=== PATIENT | female | born 1995 | race Caucasian/White ===

== ENCOUNTER 2016-04-06 00:02 | Emergency (ER) | payer OTHER ==
[~2016-04-06] VITALS: Ht 160 cm; Wt 53.8 kg
[~2016-04-06 00:02] MED LIST: ALLERGY RELIEF10 M1 PO; BENTYL20 MG PO; BIRTH CONTROL PILL PO; COLACE100 MG PO; HYDROCODON-ACE1 EAC7 PO; MACROBID100 MG PO; MARLISSA1 EACH PO; MOBIC15 MG PO; NOHOMEMEDS; PENICILLIN V P500 MG PO; PERCOCET 5/31 TABLET PO; PYRIDIUM100 MG PO; TYLENOL WITH C1 EACH PO; ZOFRAN ODT4 MG PO; ZOFRAN4 MG PO
[2016-04-06 00:26] LABS: HEMATOCRIT 38.4 % (36.0-46.0); MCH 28.1 PG (29.0-34.0); MCHC 33.3 G/DL (30.0-36.0); MCV 84.2 FL (83-99); MEAN PLAT.VOLUME 8.7 uM^3 (9.5-12.4); PLATELET COUNT 247 K/uL (156-360); RBC DIS.WIDTH-CV 12.7 % (11.8-14.6); RBC DIS.WIDTH-SD 38.3 % (39-53); RED BLOOD COUNT 4.56 M/uL (3.80-5.20); WHITE BLOOD COUNT 8.3 K/uL (4.1-10.2)
[2016-04-06 00:40] LABS: CHLORIDE 105 mEq/L (99-109); POTASSIUM 3.9 mEq/L (3.7-5.4); SODIUM 140 mEq/L (136-147)
[2016-04-06 00:42] LABS: GLUCOSE 94 mg/dL (70-99)
[2016-04-06 00:43] LABS: ANION GAP 11 MEQ/L (2-14)
[2016-04-06 00:44] LABS: TOTAL BILIRUBIN 0.4 mg/dL (0.0-1.0)
[2016-04-06 00:45] LABS: ALKALINE PHOSPHATASE 75 IU/L (3-129)
[2016-04-06 00:46] LABS: GFR ESTIMATE (CALCULATED) > 59 mL/min/
[2016-04-06 00:47] LABS: UREA NITROGEN (BUN) 13 mg/dL (9-23)
[2016-04-06 00:49] LABS: LIPASE 52 U/L (1.0-51.0)
[2016-04-06 00:55] LABS: QUANTITATIVE HCG < 4.0 MIU/ML
[2016-04-06 02:44] LABS: ADD MIUA? NO; BILIRUBIN NEGATIVE; BLOOD NEGATIVE; COLOR YELLOW ((YELLOW)); GLUCOSE (STRIP) NEGATIVE; KETONES NEGATIVE; LEUKOCYTES NEGATIVE; NITRITE NEGATIVE; PH, URINE 6.5 (5-8); PROTEIN (STRIP) NEGATIVE; SPECIFIC GRAVITY 1.026 (1.000-1.030); UCUL ADDED? NO
[2016-04-06 04:35] VITALS: BP 111/65
[2016-04-15] MEDS ORDERED: BENTYL20 MG PO (13:14)
[2016-04-15] MEDS ORDERED: KEFLEX500 MG PO (13:14)
[2016-04-15] MEDS ORDERED: ZOFRAN4 MG PO (13:15)
[2016-04-15] MEDS ORDERED: STOMACH PILL PO (13:17)
[2016-04-16] MEDS ORDERED: OMEPRAZOLE20 MG PO (15:13)
[2016-04-16] MEDS ORDERED: ELAVIL50 MG PO (15:14)
[2016-04-16] MEDS ORDERED: SUCRALFATE1 GM PO (15:15)
== END 2016-04-06 04:41 | disposition home or self-care (01) ==
LOC: EME 00:02
DX: R10.9 Unspecified abdominal pain (principal); G89.29 Other chronic pain; R11.0 Nausea; Z87.442 Personal history of urinary calculi
CPT/HCPCS: 74000; 80053; 81003; 83690; 84702; 85027; 99281; 99284; J1170; J1885; J2270; J2405; J7030

== ENCOUNTER 2016-04-09 12:56 | Emergency (ER) | payer OTHER ==
[~2016-04-09] VITALS: Ht 160 cm; Wt 52.2 kg
[2016-04-09 16:00] LABS: CHLORIDE 105 mEq/L (99-109); POTASSIUM 3.8 mEq/L (3.7-5.4); SODIUM 137 mEq/L (136-147)
[2016-04-09 16:03] LABS: GLUCOSE 93 mg/dL (70-99)
[2016-04-09 16:04] LABS: ANION GAP 9 MEQ/L (2-14)
[2016-04-09 16:06] LABS: ALKALINE PHOSPHATASE 57 IU/L (3-129); GFR ESTIMATE (CALCULATED) > 59 mL/min/
[2016-04-09 16:07] LABS: UREA NITROGEN (BUN) 12 mg/dL (9-23)
[2016-04-09 16:10] LABS: LIPASE 45 U/L (1.0-51.0)
[2016-04-09 16:37] LABS: TOTAL BILIRUBIN 0.3 mg/dL (0.0-1.0)
[2016-04-09 16:41] LABS: EOSINOPHIL (%) 4.3 % (0-5); EOSINOPHIL COUNT 0.3 K/uL (0-0.3); HEMATOCRIT 38.7 % (36.0-46.0); IMMATURE GRANULOCYTE (%) 0.1 % (0.0-0.7); IMMATURE GRANULOCYTE COUNT 0.1 K/uL; LYMPHOCYTE COUNT 1.8 K/uL (1.0-2.8); MCH 28.5 PG (29.0-34.0); MCHC 33.9 G/DL (30.0-36.0); MCV 84.3 FL (83-99); MEAN PLAT.VOLUME 9.1 uM^3 (9.5-12.4); MONOCYTE (%) 7.4 % (3-12); MONOCYTE COUNT 0.6 K/uL (0-0.8); NEUTROPHIL (%) 63.5 % (45-76); NEUTROPHIL COUNT 4.7 K/uL (1.8-6.4); PLATELET COUNT 240 K/uL (156-360); RBC DIS.WIDTH-CV 12.7 % (11.8-14.6); RBC DIS.WIDTH-SD 38.4 % (39-53); RED BLOOD COUNT 4.59 M/uL (3.80-5.20); WHITE BLOOD COUNT 7.5 K/uL (4.1-10.2)
[2016-04-09 16:55] LABS: QUANTITATIVE HCG < 4.0 MIU/ML
[2016-04-09 17:15] LABS: ADD MIUA? YES; BILIRUBIN NEGATIVE; BLOOD NEGATIVE; COLOR YELLOW ((YELLOW)); GLUCOSE (STRIP) NEGATIVE; KETONES NEGATIVE; LEUKOCYTES SMALL; NITRITE NEGATIVE; PROTEIN (STRIP) TRACE; SPECIFIC GRAVITY 1.022 (1.000-1.030); UROBILINOGEN 0.2 MG/DL (0.2-1.0)
[2016-04-09 17:51] LABS: BACTERIA 3+; CASTS NONE SEEN /LPF; CRYSTALS NONE SEEN; EPITHELIAL CELLS RARE; MUCUS NONE SEEN; PATHOLOGICAL CAST NONE SEEN; RED BLOOD CELLS 0-5 /HPF (0-5); SMALL ROUND CELL NONE SEEN; YEAST-LIKE CELL NONE SEEN
[2016-04-09] MEDS ORDERED: ZOFRAN ODT4 MG PO (19:40)
[2016-04-09] MEDS ORDERED: CARAFATE1 GM PO (19:40)
[2016-04-09] MEDS ORDERED: KEFLEX500 MG PO (19:40)
[2016-04-09 20:39] VITALS: BP 101/62
[2016-04-15] MEDS ORDERED: BENTYL20 MG PO (13:14)
[2016-04-15] MEDS ORDERED: KEFLEX500 MG PO (13:14)
[2016-04-15] MEDS ORDERED: ZOFRAN4 MG PO (13:15)
[2016-04-15] MEDS ORDERED: STOMACH PILL PO (13:17)
[2016-04-16] MEDS ORDERED: OMEPRAZOLE20 MG PO (15:13)
[2016-04-16] MEDS ORDERED: ELAVIL50 MG PO (15:14)
[2016-04-16] MEDS ORDERED: SUCRALFATE1 GM PO (15:15)
== END 2016-04-09 20:45 | disposition home or self-care (01) ==
LOC: EME 12:56
PROVIDERS: Physician Assistant
DX: N39.0 Urinary tract infection, site not specified (principal); R10.2 Pelvic and perineal pain; G89.29 Other chronic pain; R63.0 Anorexia; R11.2 Nausea with vomiting, unspecified; Z87.442 Personal history of urinary calculi; Z88.6 Allergy status to analgesic agent
CPT/HCPCS: 80053; 81003; 83690; 84702; 85025; 87086; 99281; 99285; J0500; J0696; J1170; J1885; J2060; J2405; J7030; J7050

== ENCOUNTER → 2016-04-16 | Outpatient (CLI) | payer OTHER ==
[~2016-04-16] VITALS: Ht 160 cm; Wt 47.6 kg
[~2016-04-16] MED LIST changes: +CARAFATE1 GM PO; +ELAVIL50 MG PO; +KEFLEX500 MG PO; +OMEPRAZOLE20 MG PO; +STOMACH PILL PO; +SUCRALFATE1 GM PO
== END | disposition home or self-care (01) ==
LOC: AMB 14:00
PROC: 0DBE8ZX Excision of Large Intestine, Via Natural or Artificial Opening Endoscopic, Diagnostic (ICD-10-PCS; principal; 2016-04-16)
DX: R10.9 Unspecified abdominal pain (principal); R19.7 Diarrhea, unspecified; R11.0 Nausea
CPT/HCPCS: 88305; 93005; J1100; J1885; J2250; J2405; J3010

== ENCOUNTER 2016-04-17 03:19 | Emergency (ER) | payer OTHER ==
[~2016-04-17] VITALS: Ht 160 cm; Wt 51.8 kg
[2016-04-17 03:54] LABS: HEMATOCRIT 40.5 % (36.0-46.0); MCH 28.2 PG (29.0-34.0); MCHC 33.6 G/DL (30.0-36.0); MCV 83.9 FL (83-99); MEAN PLAT.VOLUME 8.8 uM^3 (9.5-12.4); PLATELET COUNT 297 K/uL (156-360); RBC DIS.WIDTH-CV 12.9 % (11.8-14.6); RBC DIS.WIDTH-SD 38.5 % (39-53); RED BLOOD COUNT 4.83 M/uL (3.80-5.20)
[2016-04-17 03:55] LABS: WHITE BLOOD COUNT 10.2 K/uL (4.1-10.2)
[2016-04-17 04:02] LABS: CHLORIDE 107 mEq/L (99-109); SODIUM 138 mEq/L (136-147)
[2016-04-17 04:04] LABS: GLUCOSE 165 mg/dL (70-99)
[2016-04-17 04:06] LABS: ANION GAP 11 MEQ/L (2-14); TOTAL BILIRUBIN 0.4 mg/dL (0.0-1.0)
[2016-04-17 04:07] LABS: PROTHROMBIN TIME 10.6 (9.2-11.2)
[2016-04-17 04:08] LABS: ALKALINE PHOSPHATASE 58 IU/L (3-129); GFR ESTIMATE (CALCULATED) > 59 mL/min/
[2016-04-17 04:09] LABS: UREA NITROGEN (BUN) 10 mg/dL (9-23)
[2016-04-17 04:10] LABS: DIRECT BILIRUBIN 0.2 mg/dL (0.0-0.3)
[2016-04-17 04:12] LABS: LIPASE 30 U/L (1.0-51.0)
[2016-04-17 04:18] LABS: QUANTITATIVE HCG < 4.0 MIU/ML
[2016-04-17 06:02] VITALS: BP 93/51
== END 2016-04-17 06:09 | disposition home or self-care (01) ==
LOC: EME 03:19
PROVIDERS: Emergency Medicine
DX: K62.5 Hemorrhage of anus and rectum (principal); Z98.890 Other specified postprocedural states; J45.909 Unspecified asthma, uncomplicated; Z87.442 Personal history of urinary calculi
CPT/HCPCS: 74177; 80048; 80076; 83690; 84702; 85027; 85610; 86850; 86900; 86901; 99281; 99284; J1200; J7030

== ENCOUNTER 2016-05-12 17:49 | Emergency (ER) | payer OTHER ==
[~2016-05-12] VITALS: Ht 160 cm; Wt 52.0 kg
[2016-05-12 18:47] LABS: HEMATOCRIT 38.5 % (36.0-46.0); MCH 28.7 PG (29.0-34.0); MCHC 34.3 G/DL (30.0-36.0); MCV 83.7 FL (83-99); MEAN PLAT.VOLUME 8.9 uM^3 (9.5-12.4); PLATELET COUNT 238 K/uL (156-360); RBC DIS.WIDTH-CV 12.9 % (11.8-14.6); RBC DIS.WIDTH-SD 38.8 % (39-53); WHITE BLOOD COUNT 6.8 K/uL (4.1-10.2)
[2016-05-12 19:01] LABS: CHLORIDE 107 mEq/L (99-109); SODIUM 137 mEq/L (136-147)
[2016-05-12 19:03] LABS: GLUCOSE 99 mg/dL (70-99)
[2016-05-12 19:05] LABS: ANION GAP 7 MEQ/L (2-14)
[2016-05-12 19:07] LABS: GFR ESTIMATE (CALCULATED) > 59 mL/min/; TROP-I INTERPRETATION NEGATIVE; TROPONIN-I < 0.01 ng/mL (0.0-0.30)
[2016-05-12 19:08] LABS: UREA NITROGEN (BUN) 9 mg/dL (9-23)
[2016-05-12 21:04] VITALS: BP 118/78
[2016-05-12 21:13] LABS: D-DIMER ELISA 0.17 mg/L FEU (< 0.57)
[2016-05-12 21:16] LABS: TROP-I INTERPRETATION NEGATIVE; TROPONIN-I < 0.01 ng/mL (0.0-0.30)
== END 2016-05-12 22:09 | disposition left against medical advice (07) ==
LOC: EME 17:49 → RME 17:49
PROVIDERS: Physician Assistant
DX: R07.89 Other chest pain (principal); I49.8 Other specified cardiac arrhythmias; Z87.442 Personal history of urinary calculi
CPT/HCPCS: 71020; 80048; 84484; 85027; 85379; 93005; 99281; 99284

== ENCOUNTER 2017-03-26 14:17 | Emergency (ER) | payer OTHER ==
[~2017-03-26] VITALS: Ht 162.6 cm; Wt 55.9 kg
[2017-03-26] MEDS ORDERED: FLEXERIL10 MG PO (16:39)
[2017-03-26] MEDS ORDERED: NAPROXEN500 MG PO (16:39)
[2017-03-26 17:44] VITALS: BP 110/72
== END 2017-03-26 17:45 | disposition home or self-care (01) ==
LOC: EME 14:17
DX: M54.5 Low back pain (principal); M54.2 Cervicalgia; R51 Headache; M25.511 Pain in right shoulder; M25.512 Pain in left shoulder; V49.50XA Passenger injured in collision with unspecified motor vehicles in traffic accident, initial encounter; Z88.5 Allergy status to narcotic agent; Z91.041 Radiographic dye allergy status
CPT/HCPCS: 99281; 99283; J1885